=== PATIENT | female | born 1975 | race Caucasian/White ===

== ENCOUNTER 2021-09-20 17:26 | Inpatient (IN) ==
[2021-09-20] MEDS ORDERED: Haloperidol 5 mg/ml SDV IV/IM 5 MG/ML AMP IM ONE (18:50)
[2021-09-20] MEDS ORDERED: diPHENhydraMINE IV 50 MG/ML 1 ml VIAL (BENADRYL) IM ONE (18:50)
[2021-09-20] MEDS ORDERED: LORazepam 2 mg VIAL 1 ml IM ONE (18:50)
[2021-09-20] MEDS ORDERED: Lorazepam PYXIS KEY PRN (18:50)
[2021-09-20 20:47] LABS: ABS Lymphocytes 1.2 10^3/ul (1.0-4.8); ABS Monocytes 0.2 10^3/ul (0-0.8); ABS Neutrophils 2.9 10^3/ul (1.5-7.7); Eosinophil % 0.3 %; Hematocrit 36 % (35-47); Hemoglobin 12.4 g/dL (12.0-16.0); Lymphocyte % 27.8 %; Mean Corpuscular HGB Conc 34 g/dL (31-36); Mean Corpuscular Hemoglobin 31 pg (27-31); Mean Corpuscular Volume 91 fL (80-97); Mean Platelet Volume 8.9 fL (7.4-10.4); Nucleated Red Blood Cells % 0.1; Platelet Count 171 10^3/uL (150-450); Red Blood Count 3.96 10^6 /uL (3.70-4.87); Red Cell Distribution Width 14 % (10-15); White Blood Count 4.3 10^3/uL (3.5-10.8)
[2021-09-20 21:04] LABS: ALT 8 U/L (7-52); AST 14 U/L (13-39); Albumin 3.9 g/dL (3.2-5.2); Albumin/Globulin Ratio 1.6 (1-3); Alkaline Phosphatase 79 U/L (35-149); Anion Gap 5 mmol/L (2-11); Blood Urea Nitrogen 8 mg/dL (6-24); CO2 Carbon Dioxide 24 mmol/L (22-32); Chloride 108 mmol/L (101-111); Globulin 2.4 g/dL (2-4); Glucose 88 mg/dL (70-100); Potassium 3.5 mmol/L (3.5-5.0); Sodium 137 mmol/L (135-145); Total Protein 6.3 g/dL (6.4-8.9); eGFR CKD-EPI 114.1 (>60)
[2021-09-20 21:10] LABS: HCG Pregnancy < 0.60 mIU/mL
[2021-09-20 21:25] LABS: Acetaminophen < 15 mcg/mL; Alcohol, S < 13 mg/dL (<13); Salicylate < 2.50 mg/dL (<30)
[2021-09-21 09:36] LABS: Urine Appearance Cloudy; Urine Bilirubin Negative (Negative); Urine Blood 3+ (Negative); Urine Color Yellow; Urine Glucose Negative (Negative); Urine Ketones Negative (Negative); Urine Nitrite Negative (Negative); Urine Protein Negative (Negative); Urine Specific Gravity 1.012 (1.002-1.030); Urine Urobilinogen Negative (Negative)
[2021-09-21 09:46] LABS: Urine Bacteria Absent (Absent); Urine Red Blood Cell Absent (Absent); Urine Squamous Epithelial Cell Present (Absent); Urine White Blood Cell Trace(0-5/hpf) (Absent)
[2021-09-21 11:05] LABS: Urine Benzodiazepine Screen None Detected (None Detect); Urine Cannabinoids Screen None Detected (None Detect); Urine Opiates Screen None Detected (None Detect)
[2021-09-21] MEDS ORDERED: Al Hydrox/Mg Hydrox/Simet LIQ 30 ML UDC PO PRN (11:21)
[2021-09-21 12:12] LABS: Rapid COVID-19 Molecular Undetected (Undetected)
[2021-09-21] MEDS ORDERED: Nicotine PATCH 14 MG/24 HR PATCH TRANSDERM ONE (13:52)
[2021-09-22 06:50] LABS: HDL Cholesterol 52.4 mg/dL
[2021-09-22 12:46] LABS: Vitamin D Total 25(OH) 10.4 ng/mL (20-50)
[2021-09-22] MEDS: Nicotine GUM 2MG FRUIT FLAVOR PO PRN ×2 (12:57→20:28)
[2021-09-22] MEDS ORDERED: risperiDONE-M 1 mg Oradis TAB PO SCH (21:00)
[2021-09-23] MEDS: Vitamin THERAPEUTIC TAB PO SCH (11:09)
[2021-09-23] MEDS: Cholecalciferol (VIT D3) 1,000 unit TAB PO SCH (11:09)
[2021-09-23 12:47] LABS: Phosphorus 4.1 mg/dL (2.5-5.0)
[2021-09-23] MEDS: Nicotine GUM 2MG FRUIT FLAVOR PO PRN (20:25)
[2021-09-24] MEDS: Vitamin THERAPEUTIC TAB PO SCH (08:38)
[2021-09-24] MEDS: Cholecalciferol (VIT D3) 1,000 unit TAB PO SCH (08:40)
[2021-09-24] MEDS: Nicotine GUM 2MG FRUIT FLAVOR PO PRN (16:03)
[2021-09-25] MEDS: Vitamin THERAPEUTIC TAB PO SCH (08:13)
[2021-09-25] MEDS: Cholecalciferol (VIT D3) 1,000 unit TAB PO SCH (08:14)
[2021-09-25] MEDS: Nicotine GUM 2MG FRUIT FLAVOR PO PRN (13:28)
[2021-09-26] MEDS: Cholecalciferol (VIT D3) 1,000 unit TAB PO SCH (08:34)
[2021-09-26] MEDS: Vitamin THERAPEUTIC TAB PO SCH (08:34)
[2021-09-26] MEDS: Nicotine GUM 2MG FRUIT FLAVOR PO PRN (18:55)
[2021-09-27] MEDS: Cholecalciferol (VIT D3) 1,000 unit TAB PO SCH (09:39)
[2021-09-27] MEDS: Vitamin THERAPEUTIC TAB PO SCH (09:39)
[2021-09-27] MEDS: Nicotine GUM 2MG FRUIT FLAVOR PO PRN ×2 (12:23→18:35)
[2021-09-28] MEDS: Cholecalciferol (VIT D3) 1,000 unit TAB PO SCH (08:53)
[2021-09-28] MEDS: Vitamin THERAPEUTIC TAB PO SCH (08:53)
[2021-09-28] MEDS: Nicotine GUM 2MG FRUIT FLAVOR PO PRN ×4 (09:04→20:25)
[2021-09-29] MEDS: Cholecalciferol (VIT D3) 1,000 unit TAB PO SCH (08:19)
[2021-09-29] MEDS: Vitamin THERAPEUTIC TAB PO SCH (08:19)
[2021-09-29] MEDS: Nicotine GUM 2MG FRUIT FLAVOR PO PRN ×2 (08:21→13:44)
[2021-09-29 11:22] VITALS: BP 136/85
== END 2021-09-29 14:05 | disposition home or self-care (01) | DRG 750 ==
LOC: ED 17:26 → BSU 09-21 11:21
PROVIDERS: ADMIT Psychiatry & Neurology Psychiatry; ATTEND Psychiatry & Neurology Psychiatry